=== PATIENT | female | born 1950 | race Caucasian/White ===

== ENCOUNTER 2022-06-19 15:30 | Outpatient (REF) | payer MEDICARE, SELFPAY ==
--- NOTE | ~2022-06-19 | XR_ITS ---
EXAMINATION: XR LUMBOSACRAL SPINE CLINICAL INFORMATION: Low back pain COMPARISON: None TECHNIQUE: Three views of the lumbosacral spine. FINDINGS: There is curvature of the mid lumbar spine to the left. Bone alignment is otherwise normal. No fracture or dislocation is seen. The bones may be osteopenic. There is degenerative disc disease at L4-L5. There is lower lumbar spine facet arthritis. XR/XR lumbar spine 2-3V IMPRESSION: Degenerative changes, mild scoliosis and question osteopenia.
== END 2022-06-19 15:31 | disposition home or self-care (01) ==
LOC: HO.XRAY 15:30
PROVIDERS: PCP Family Medicine; Visit Provider Family Medicine
DX: M54.50 Low back pain, unspecified (principal)
CPT/HCPCS: 72100

== ENCOUNTER 2022-08-31 14:00 | Outpatient (RCR) | payer MEDICARE, SELFPAY ==
--- NOTE | 2022-07-12 18:04 | MHC.PT.EP ---
[facility] [place] Office [place] Office [place] Office [address]aviria [address] [phone] F: [phone] F: [phone] F: [phone] F: [phone] Physical Therapy Plan of Care Date of Evaluation: Date of Surgery: N/A Diagnosis: lumbosacral DJD and scoliosis Assessment: Pt is a motivated and active 71 yo female presenting to physical therapy with B low back and glute pain, L>R. She presents to PT with current impairments in pain, decreased strength, impaired posture, and soft tissue restrictions. She is limited functionally by dressing, bending, lifting, squatting, and completing her typical exercise regimen. Pt is an excellent candidate for skilled physical therapy in order to address current impairments in order to facilitate return to PLOF. She will be seen 2x/week for 4 weeks and will be reassessed at that time. Frequency and Duration: The patient will be seen 2x/4 weeks Short Term Goals: Pt will be I in HEP to promote self-management of condition. Pt will improve L glute max MMT to 5/5 to improve tolerance to ADLs. Seam Finisher Goals: Pt will demonstrate improvements in function as evidenced by a statistically significant NANCY outcome measure to facilitate return to PLOF Pt will demonstrate ability to lift 20-30lbs from the floor with proper body mechanics and minimal to no pain. Pt will return to gym routine without compensation with proper mechanics and minimal to no pain Treatment Plan: Modalities to reduce pain, spasms and effusion. Manual therapy to restore motion and function. Therapeutic exercise to improve strength and flexibility. Neuromuscular re-education for posture and balance. Therapeutic activities to return to functional activities of daily living. Electronically signed by: Luzmaria Osuna, PT, DPT Please sign and return to therapist. Thank you for your referral.
--- NOTE | 2022-09-11 15:36 | MHC.PT.DC ---
[facility] [place] Office [place] Office [place] Office [address] Melvin Gaviria [address] [phone] F: [phone] F: [phone] F: [phone] F: [phone] Physical Therapy Discharge Report Diagnosis: lumbosacral DJD and scoliosis Date of Surgery: N/A Date of Evaluation: 07/12/22 Date of Discharge: 09/11/22 Treatments to Date: 9 Cancellations to Date: 0 No Shows to Date: 0 Discharge Status: Achieved Goals Improved Function Independent with HEP Discharge Summary: Pt was seen for PT from 07/12/22-08/31/22. Her last attended appointment was 08/31/22. She has made excellent progress since SOC. She has improved her ROM and strength throughout her back and hips. She has met her STGs and made good progress toward her LTGs. She consistently had minimal to no pain. Pt is I with HEP. Pt is being D/C from skilled PT at this time. Electronically signed by: Luzmaria Osuna, PT, DPT Please sign and return to therapist. Thank you for your referral.
== END 2022-09-11 15:37 | disposition home or self-care (01) ==
LOC: HO.PT 14:00
PROVIDERS: PCP Family Medicine; Visit Provider Family Medicine
DX: M47.898 Other spondylosis, sacral and sacrococcygeal region (principal); M41.9 Scoliosis, unspecified
CPT/HCPCS: 97110; 97112; 97140; 97161

== ENCOUNTER 2023-01-15 14:50 | Outpatient (REF) | payer MEDICARE, SELFPAY ==
--- NOTE | ~2023-01-15 | US_ITS ---
EXAMINATION: US PELVIS CLINICAL INFORMATION: Pelvic and low back pain. COMPARISON: None available. TECHNIQUE: Ultrasound of the pelvis is performed using both transabdominal and transvaginal transducers along with Doppler. Transvaginal imaging is performed due to inadequate visualization transabdominally. FINDINGS: Uterus: The uterus is retroverted and retroflexed measuring 6.4 x 2.3 x 4.4 cm. A tiny amount of fluid is seen in the endometrial canal. 2 punctate hyperechoic regions are seen which may represent calcification in the endometrium. The double wall endometrial thickness is 0.2 mm. A nabothian cyst is seen in the cervix. The uterus is smooth in contour and has normal myometrial echogenicity. No visible fibroid. Adnexa: Both ovaries are visualized. There is normal color flow to the adnexa. There is no ovarian torsion. There is no pelvic ascites or fluid collection. Right ovary measures 1.1 x 0.9 x 0.8 cm for a volume of 0.4 mL and appears normal. Left ovary measures 1.5 x 1.2 x 1.1 cm for a volume of 1.0 mL and appears normal. US/US pelvic and transvaginal IMPRESSION: 1. A tiny amount of fluid is seen in the endometrial canal with 2 small punctate calcifications. 2. No other abnormality is seen.
== END 2023-01-15 14:51 | disposition home or self-care (01) ==
LOC: HO.US 14:50
PROVIDERS: PCP Family Medicine; Visit Provider Family Medicine
DX: R10.2 Pelvic and perineal pain (principal); M54.50 Low back pain, unspecified
CPT/HCPCS: 76830; 76856

== ENCOUNTER 2025-08-13 14:07 | Outpatient (AMB) | payer MEDICARE, SELFPAY ==
--- NOTE | 2025-08-13 14:21 | MHC.PC.OV ---
Vital Signs 08/13/25 14:37 Height 5 ft 6 in Weight 134 lb BMI 21.6 BP 120/86 Blood Pressure Location Lt brachial Position Sitting Pulse 87 Pulse Source Pulse Oximeter Temp 98.2 F Temp Source Temporal Artery Scan Pulse Oximetry (%) 98 Oxygen Delivery Method Room Air Intake Visit Reasons: Routine / Dr Jose Electro Mechanic Required: No Accompanied by: Spouse Allergies Penicillins (PCN) Allergy (Severe, Verified 08/13/25 14:38) Hives Medication List - Last Reconciled 08/30/25 by EDYTA Fairchild aspirin 81 mg PO DAILY famotidine 40 mg PO DAILY loratadine (Claritin) 10 mg PO DAILY multivitamin 1 tab PO DAILY Tobacco use date assessed: 08/13/25 Fall risk assessment: No Falls in past year Last assessed Fall Risk: 08/13/25 Dental Screening Dental Screen Date: 08/13/25 Did you have a dental visit in the last 12 months?: Yes Did you have a dental problem in the last 6 months where you did not have access to dental care?: No HPI HPI Comments History of Present Illness Details The patient is a 74-year-old female with AR and GERD presenting to [facility] and for a wellness check. She reports occasional irregular heartbeats, described as a flutter, which occur sporadically when she is at rest or her heart rate is decreasing. These episodes are not frequent enough to warrant continuous monitoring, and no prior monitoring has been conducted. The patient experiences heartburn, which is managed with famotidine, initially prescribed for acid reflux occurring at night. The medication has effectively resolved the issue. She has a history of a torn gluteus minimus, likely due to repetitive activities such as squats. The condition has improved but has not fully healed, though it does not interfere significantly with her daily activities. The patient also reports a tendency for wax buildup in her ears, which has required removal in the past. She is advised to use hydrogen peroxide drops weekly to prevent occlusion. Medical History: - Occasional irregular heartbeats - Heartburn managed with famotidine - Torn gluteus minimus - Wax buildup in ears Surgical History: - Cataract surgery with lens implants Medications: - Famotidine for acid reflux -Loratadine for allergies Patient has mammograms yearly at [facility]. She declines colonoscopy. Patient was informed and verbally consented to the use of an ambient scribe for clinic note documentation during this visit. [facility] Medical History (Updated 08/30/25 @ 15:01 by EDYTA Fairchild) Allergic rhinitis GERD (gastroesophageal reflux disease) Health care maintenance Palpitations Family History (Updated 08/13/25 @ 14:42 by sAhley Wood MA) Mother No problems noted. Father No problems noted. Social History Housing: House Patient Tobacco Use Status: Never used Tobacco e-Cigarette/Vaping Use: Never Used service: No Current occupational status: retired Cognitive needs: No Hearing needs: No Vision needs: Yes (Reading glasseds) Questionnaire PHQ-9 Over the last 2 weeks, how often have you been bothered by any of the following problems? 1. Little interest or pleasure in doing things: not at all 2. Feeling down, depressed, or hopeless: not at all 3. Trouble falling or staying asleep, or sleeping too much: not at all 4. Feeling tired or having little energy: not at all 5. Poor appetite or overeating: not at all 6. Feeling bad about yourself - or that you are a failure or have let yourself or your family down: not at all 7. Trouble concentrating on things, such as reading the newspaper or watching television: not at all 8. Moving or speaking so slowly that other people could have noticed. Or the opposite - being so fidgety or restless that you have been moving around a lot more than usual: not at all 9. Thoughts that you would be better off or of hurting yourself in some way: not at all Total score: 0 Depression Screening Interpretation: Negative Depression Screening Done: Yes Source: Developed by Drs. Emil aMo, Vivian Stuart, Ez Brian and colleagues, with an educational josué from [employer]. Thrive Questionnaire Date Thrive assessed: 08/13/25 I am a: Patient Within the past 12 months, did the food you bought not last and you didn't have the money to get more?: Never true Within the past 12 months, did you worry whether your food would run out before you got money to buy more?: Never true Do you have trouble paying for medicines?: No Do you have trouble getting transportation to medical appointments?: No Do you have trouble paying your heating and electricity bill?: No Do you have trouble taking care of your child, family member or friend?: No Do you have trouble with day-to-day activities such as bathing, preparing meals, shopping, managing finances, etc.?: No Are you currently unemployed and looking for a job?: No Are you interested in more education?: No THRIVE Score: 0 AUDIT C Alcohol Use Questionnaire (AUDIT-C) 1. How often do you have a drink containing alcohol?: Monthly or less 2. How many drinks containing alcohol do you have on a typical day when you are drinking?: 1 or 2 3. How often do you have six or more drinks on one occasion?: Less than monthly Total Score: 2 LUKE-7 AMB Questionnaire LUKE-7 Date LUKE - 7 assessed: 08/13/25 Feeling nervous, anxious, or on edge: 0 = Not at all Not being able to stop or control worryin = Not at all Worrying too much about different things: 0 = Not at all Trouble relaxin = Not at all Being so restless that it is hard to sit still: 0 = Not at all Becoming easily annoyed or irritable: 0 = Not at all Feeling afraid as if something awful might happen: 0 = Not at all Total LUKE-7 score (0-4 normal; 5-9 mild; 10-14 moderate; 15-21 severe): 0 Source: Developed by Drs. Emil Mao, Vivian Stuart, Ez Brian and colleagues, with an educational josué from [employer]. Review of Systems Narrative - Cardiovascular: Reports occasional irregular heartbeats. Denies chest pain or syncope. - Gastrointestinal: Reports heartburn managed with famotidine. Denies constipation or diarrhea. - Musculoskeletal: Reports a history of a torn gluteus minimus. Denies significant interference with daily activities. - Ears: Reports wax buildup. Denies hearing loss. Physical exam (Primary Care) Vital Signs: Last Vital Signs Temp 98.2 F 08/13/25 14:37 Pulse 87 08/13/25 14:37 BP 120/86 08/13/25 14:37 Pulse Ox 98 08/13/25 14:37 Oxygen Delivery Method Room Air 08/13/25 14:37 BMI result Body Mass Index 21.6 GENERAL Well developed, Well nourished, in no apparent distress HEENT Head-Normocephalic Eyes- PERRLA, EOMI, Conjuctiva clear, lids WNL Ears- Canals clear, TMs WNL Mouth/Throat-No lesions, no erythema, no exudate Neck- Supple, No lymphadenopathy, thyroid WNL RESPIRATORY Normal I:E, Clear to auscultation CARDIOVASCULAR Regular, rate and rhythm, No murmurs or rubs GASTROINTESTINAL Soft, nontender, normal bowel sounds, no masses MUSCULOSKELETAL Back- nontender Joints- no swelling or deformity NEUROLOGICAL Gait normal PSYCHIATRIC Oriented to person, place and time Mood and affect WNL Appearance WNL Speech WNL Thought processes WNL Tobacco/Smoking Status: Tobacco use Status Tobacco use date assessed 08/13/25 08/13/25 14:22 Patient Tobacco Use Status Never used Tobacco 08/13/25 14:22 e-Cigarette/Vaping Use Never Used 08/13/25 14:22 PHQ-9: PHQ-9 Score PHQ-9: Total score 0 08/13/25 14:42 Depression Screening Interpretation: Negative Thrive Assessment: Date of Thrive Assessment Date Thrive assessed 08/13/25 08/13/25 14:42 Coding Level of Care Code New Pt New Pt Level 4 (60888) Patient Type New Diagnoses Allergic rhinitis J30.9 GERD (gastroesophageal reflux disease) K21.9 Palpitations R00.2 Time Spent (min) 30 Comment Time spent on chart review, medication reconciliation, H&P, patient education and orders. Assessment & Plan Assessment & Plan (1) Allergic rhinitis: Code(s): J30.9 - Allergic rhinitis, unspecified Category: Medical Plan: Take Loratadine as needed. Patient will continue current medications. Will monitor. Patient will follow up in 6 months. (2) GERD (gastroesophageal reflux disease): Code(s): K21.9 - Gastro-esophageal reflux disease without esophagitis Category: Medical Plan: The patient experiences heartburn, managed effectively with famotidine, initially prescribed for nocturnal acid reflux. Continued use of famotidine is recommended as it resolves the symptoms. Patient will continue current medications. Will monitor. Patient will follow up in 6 months. (3) Palpitations: Code(s): R00.2 - Palpitations Category: Medical Plan: The patient reports occasional irregular heartbeats, described as a flutter, occurring sporadically when at rest or during heart rate deceleration. No continuous monitoring has been conducted due to the infrequency of episodes. If episodes increase in frequency, further investigation with monitoring may be considered. Patient to follow up as needed if symptoms persist or worsen. Plan During the visit, we discussed the patient's occasional irregular heartbeats and the lack of need for continuous monitoring unless the frequency increases. We also reviewed the management of heartburn with famotidine, which has been effective. Preventative care measures, including blood work and regular mammograms, were emphasized to maintain overall health. Orders: Orders Complete Blood Count no Diff 08/13/25 Z00. - Encounter for general adult medical examination without abnormal findings Comprehensive Met. Panel 08/13/25 Z00. - Encounter for general adult medical examination without abnormal findings Lipid Panel 08/13/2500.00 - Encounter for general adult medical examination without abnormal findings, Z13.220 - Encounter for screening for lipoid disorders TSH reflex Free T4 08/13/25 Z00. - Encounter for general adult medical examination without abnormal findings Vitamin D 25-OH Total 08/13/25 Z00.00 - Encounter for general adult medical examination without abnormal findings Patient Instructions: - Continue taking famotidine as prescribed for heartburn management. - Use hydrogen peroxide drops weekly to manage ear wax buildup. - Schedule blood work to check cholesterol and vitamin D levels. - Continue annual mammograms for breast health monitoring.
[2025-08-13 14:37] VITALS: BP 120/86; PULSE 87; TEMP 36.8; O2SAT 98; BMI 21.6
== END 2025-08-13 15:05 | disposition home or self-care (01) ==
LOC: HO.HMCHD 14:07
PROVIDERS: PCP Family Medicine; Visit Provider Physician Assistant Medical
DX: J30.9 Allergic rhinitis, unspecified (principal); K21.9 Gastro-esophageal reflux disease without esophagitis; R00.2 Palpitations

== ENCOUNTER → 2025-08-13 14:07 | Outpatient (BNVA) | payer MEDICARE, SELFPAY | PROVIDERS: PCP Family Medicine; Visit Provider Physician Assistant Medical | DX: K21.9 Gastro-esophageal reflux disease without esophagitis (principal); R12 Heartburn; J30.9 Allergic rhinitis, unspecified; R00.2 Palpitations | CPT/HCPCS: 96127; 99202 ==

== ENCOUNTER 2025-08-25 08:42 | Outpatient (REF) | payer MEDICARE, SELFPAY ==
[2025-08-25 09:03] LABS: Hematocrit 38.3 % (37.0-47.0); Hemoglobin 12.5 g/dl (12.0-16.0); Mean Corpuscular HGB Conc 32.6 g/dl (31.0-35.0); Mean Corpuscular Hemoglobin 30.5 pg (27.0-33.0); Mean Corpuscular Volume 93.4 fL (80.0-98.0); NRBC Abs Auto 0.000 X10*3/uL (0.0-0.012); NRBC Pct Auto 0.0 /100WBC (0.0-0.2); Platelet Count 216 X10*3/uL (160-400); Red Blood Count 4.10 X10*6/uL (4.20-5.50); White Blood Count 4.5 X10*3/uL (4.8-10.8)
[2025-08-25 09:34] LABS: Alanine Aminotransferase 20 U/L (0-31); Albumin Level 4.4 g/dL (3.5-5.0); Alkaline Phosphatase 63 U/L (39-117); Anion Gap 10 (12-20); Aspartate Amino Transferase 26 U/L (5-31); Blood Urea Nitrogen 20 mg/dL (9-16); Calcium 9.0 mg/dL (8.4-10.2); Carbon Dioxide 28 mmol/L (22-29); Chloride 107 mmol/L (96-108); Cholesterol 234 mg/dL (<200); Estimated Glomerular Filt Rate 48; HDL Cholesterol 76 mg/dL (>40); Potassium 4.5 mmol/L (3.3-5.1); Sodium 140 mmol/L (135-145); Total Protein 7.1 g/dL (6.5-8.0); Triglycerides 77 mg/dL (<150)
== END 2025-08-25 08:43 | disposition home or self-care (01) ==
LOC: HO.LAB 08:42
PROVIDERS: PCP Physician Assistant Medical; Visit Provider Physician Assistant Medical
DX: Z00.00 Encounter for general adult medical examination without abnormal findings (principal); Z13.220 Encounter for screening for lipoid disorders; Z13.6 Encounter for screening for cardiovascular disorders; Z13.29 Encounter for screening for other suspected endocrine disorder; Z13.0 Encounter for screening for diseases of the blood and blood-forming organs and certain disorders involving the immune mechanism
CPT/HCPCS: 36415; 80053; 80061; 82306; 84443; 85027